=== PATIENT | female | born 1985 | race Caucasian/White ===

== ENCOUNTER → 2020-07-24 14:28 | Outpatient (CLI) | payer OTHER, SELFPAY ==
--- NOTE | 2020-07-24 | DI.RAD.S_ITS ---
PROCEDURE: XR THORACIC SPINE 2V INDICATIONS: thoracic spine pain TECHNIQUE: 2 views of the thoracic spine were acquired. COMPARISON: None. FINDINGS: Bones: No fractures or dislocations. No suspicious bony lesions. Very mild leftward curvature of lower thoracic spine centered at T8-9 level is seen. 12 pairs of ribs are noted, and appear intact where visualized. Soft tissues: No paravertebral stripe thickening. IMPRESSION: Very mild leftward curvature of thoracic spine centered at T8-9 level. No compression fracture or spondylolisthesis. Dictated by: Tree Rose M.D. on 07/24/2020 at 15:15 Approved by: Tree Rose M.D. on 07/24/2020 at 15:16
--- NOTE | 2020-07-24 | DI.RAD.S_ITS ---
PROCEDURE: XR LUMBAR SPINE 2-3V INDICATIONS: lumbar spine pain TECHNIQUE: 3 views of the lumbar spine were acquired. COMPARISON: None. FINDINGS: Bones: 5 [id number] vertebrae are present. There is normal bony alignment. No vertebral body compression fractures. No suspicious bony lesions. Soft tissues: Overlying bowel gas pattern is normal. No suspicious soft tissue calcifications. IMPRESSION: Unremarkable radiographic examination of lumbar spine. Dictated by: Tree Rose M.D. on 07/24/2020 at 15:15 Approved by: Tree Rose M.D. on 07/24/2020 at 15:15
--- NOTE | 2020-07-24 | DI.RAD.S_ITS ---
PROCEDURE: XR CERVICAL SPINE 4V OR 5V INDICATIONS: cervical spine pain TECHNIQUE: 5 views of the cervical spine acquired. COMPARISON: None. FINDINGS: Bones: No fractures or dislocations to the C7-T1 level. Straightening of normal cervical lordosis is seen. Oblique images demonstrate no bony foraminal stenoses. Soft tissues: No prevertebral soft tissue swelling. IMPRESSION: Mild straightening of normal cervical lordosis. No compression fracture or spondylolisthesis. No significant bony foraminal stenosis. Dictated by: Tree Rose M.D. on 07/24/2020 at 15:14 Approved by: Tree Rose M.D. on 07/24/2020 at 15:15
== END ==
PROVIDERS: PCP Family Medicine; Referring Provider Chiropractor; Visit Provider Chiropractor
DX: M99.01 Segmental and somatic dysfunction of cervical region (principal); M99.02 Segmental and somatic dysfunction of thoracic region; M99.03 Segmental and somatic dysfunction of lumbar region
CPT/HCPCS: 72050; 72070; 72100